=== PATIENT | male | born 1955 | race Two or more races ===

== ENCOUNTER 2019-03-16 16:44 | Emergency (ER) | payer SELFPAY ==
[~2019-03-16] VITALS: Ht 188 cm; Wt 107.0 kg
[2019-03-16 19:02] LABS: INR 2.3
[2019-03-16 19:35] LABS: BASOPHILS % 0.5 % (0.0-2.0); EOSINOPHILS % 0.3 % (0.0-5.0); HEMATOCRIT. 43.5 % (42.0-52.0); LYMPHOCYTES % 20.1 % (20.0-50.0); MEAN CORPUSCULAR HEMOGLOBIN 26.7 pg (28.0-32.0); MEAN CORPUSCULAR VOLUME 82.7 fL (80.0-94.0); MEAN PLATELET VOLUME 9.6 fl (7.4-10.4); NEUTROPHILS % 75.1 % (40.0-76.0); PLATELET 141 x1000/uL (130-400); RED BLOOD CELL COUNT 5.26 mill/uL (4.7-6.1); RED CELL DISTRIBUTION WIDTH 14.4 % (11.6-14.6)
[2019-03-16 19:42] LABS: CHLORIDE 110 mEq/L (98-107)
[2019-03-16 21:20] VITALS: BP 123/77
== END 2019-03-16 21:36 | disposition home or self-care (01) ==
LOC: ER 17:02
DX: R55 Syncope and collapse (principal); H40.9 Unspecified glaucoma; Z88.5 Allergy status to narcotic agent
CPT/HCPCS: 36415; 71045; 82962; 83880; 84484; 93005; 99284

== ENCOUNTER 2020-01-31 21:57 | Emergency (ER) | payer MEDICARE ==
[~2020-01-31] VITALS: Ht 190.5 cm; Wt 111.0 kg
[2020-01-31 21:59] VITALS: BP 150/120
== END 2020-01-31 22:52 | disposition left against medical advice (07) ==
LOC: ER 21:57
DX: T40.5X2 Poisoning by cocaine, intentional self-harm (principal)
CPT/HCPCS: 99283

== ENCOUNTER 2025-01-01 10:37 | Inpatient (IN) | payer MEDICARE, OTHER ==
[~2025-01-01] VITALS: Ht 188 cm; Wt 108.2 kg
[2025-01-01] MEDS: LACTATED RINGERS 500 ML IV SCH (11:00)
[2025-01-01] MEDS: ATROPINE SULFATE 1MG/10ML SYR IV ONE (11:00)
[2025-01-01 11:25] LABS: BASOPHILS % 0.4 % (0.0-2.0); HEMATOCRIT. 38.4 % (42.0-52.0); MEAN CORPUSCULAR HEMOGLOBIN 27.8 pg (28.0-32.0); MEAN CORPUSCULAR HGB CONC 31.3 g/dL (31.0-37.0); MEAN PLATELET VOLUME 9.5 fl (7.4-10.4); MONOCYTES % 12.3 % (2.0-8.0); NEUTROPHILS % 46.3 % (40.0-76.0); PLATELET 102 x1000/uL (130-400); RED BLOOD CELL COUNT 4.31 mill/uL (4.7-6.1); RED CELL DISTRIBUTION WIDTH 14.1 % (11.6-14.6); WHITE BLOOD COUNT 4.1 x1000/uL (4.5-11.0)
[2025-01-01 11:47] LABS: CHLORIDE 111 mEq/L (98-107); POTASSIUM 4.4 mEq/L (3.5-5.1); SODIUM 142 mEq/L (136-145)
[2025-01-01 11:48] LABS: CALCIUM 8.6 mg/dL (8.7-10.4); CARBON DIOXIDE 23 mEq/L (21-32)
[2025-01-01 11:53] LABS: CREATININE 0.9 mg/dL (0.6-1.3); GLUCOSE 97 mg/dL (70-105); UREA NITROGEN BLOOD 10 mg/dL (9-23)
[2025-01-01] MEDS ORDERED: ONDANSETRON HCL 4MG/2ML INJ IV PRN (12:00)
[2025-01-01] MEDS ORDERED: HYDROCODONE/ACETAMINOPHEN 5/325MG TABLET PO PRN (12:00)
[2025-01-01] MEDS ORDERED: HYDRALAZINE 20MG/ML VIAL IV PRN (12:00)
[2025-01-01 12:09] LABS: TROPONIN I HIGH SENSITIVITY < 4 ng/L (3.0-53)
[2025-01-01] MEDS ORDERED: NALOXONE HCL 0.4MG/ML VIAL IV PRN (12:15)
[2025-01-01 13:00] VITALS: BP 136/92; PULSE 95; RESP 17; TEMP 35.8; O2SAT 100
[2025-01-01] MEDS: ENOXAPARIN 40MG/0.4ML SYR SUBCUT SCH (13:00)
[2025-01-01 14:17] VITALS: BP 136/92; PULSE 95; RESP 20; TEMP 35.9
[2025-01-01 16:00] VITALS: BP 138/79; PULSE 91; RESP 20; TEMP 36.7; O2SAT 96
[2025-01-01 20:00] VITALS: BP 116/42; PULSE 62; RESP 20; TEMP 36.9; O2SAT 100
[2025-01-01 20:23] LABS: TROPONIN I HIGH SENSITIVITY < 4 ng/L (3.0-53)
[2025-01-01] MEDS ORDERED: VISCOUS LIDOCAINE 2% 15 ML UDC MM PRN (21:30)
[2025-01-01] MEDS: ACETAMINOPHEN 325MG TABLET PO PRN (22:10)
[2025-01-02] VITALS: BP 131/64; PULSE 57; RESP 18; TEMP 36.3; O2SAT 100
[2025-01-02 00:50] LABS: TROPONIN I HIGH SENSITIVITY < 4 ng/L (3.0-53)
[2025-01-02 04:00] VITALS: BP 113/57; PULSE 52; RESP 18; TEMP 36.5; O2SAT 97
[2025-01-02 06:40] LABS: BASOPHILS % 0.5 % (0.0-2.0); EOSINOPHILS % 1.5 % (0.0-5.0); HEMATOCRIT. 37.4 % (42.0-52.0); HEMOGLOBIN. 12.2 g/dL (14.0-18.0); LYMPHOCYTES % 41.1 % (20.0-50.0); MEAN CORPUSCULAR HEMOGLOBIN 27.8 pg (28.0-32.0); MEAN CORPUSCULAR HGB CONC 32.7 g/dL (31.0-37.0); MEAN CORPUSCULAR VOLUME 85.2 fL (80.0-94.0); MONOCYTES % 9.7 % (2.0-8.0); NEUTROPHILS % 47.2 % (40.0-76.0); PLATELET 135 x1000/uL (130-400); RED BLOOD CELL COUNT 4.39 mill/uL (4.7-6.1); RED CELL DISTRIBUTION WIDTH 13.5 % (11.6-14.6); WHITE BLOOD COUNT 4.5 x1000/uL (4.5-11.0)
[2025-01-02 06:41] LABS: CARBON DIOXIDE 26 mEq/L (21-32); CHLORIDE 111 mEq/L (98-107); POTASSIUM 4.1 mEq/L (3.5-5.1); SODIUM 143 mEq/L (136-145)
[2025-01-02 06:43] LABS: CALCIUM 8.5 mg/dL (8.7-10.4)
[2025-01-02 06:46] LABS: CREATININE 0.8 mg/dL (0.6-1.3)
[2025-01-02 06:47] LABS: GLUCOSE 95 mg/dL (70-105); UREA NITROGEN BLOOD 11 mg/dL (9-23)
[2025-01-02 08:00] VITALS: BP_SYST 138; BP_SYST 144; BP_SYST 148; BP_DIAS 78; BP_DIAS 81; BP_DIAS 82; PULSE 65; RESP 18; TEMP 36.2; O2SAT 100
[2025-01-02] MEDS: PANTOPRAZOLE SODIUM 40 MG/VIAL IV SCH (08:48)
[2025-01-02 12:00] VITALS: BP 138/80; PULSE 60; RESP 18; TEMP 36.7; O2SAT 100
[2025-01-02 15:51] VITALS: BP 148/70; PULSE 62; TEMP 97.8; O2SAT 100
[2025-01-02 15:54] VITALS: BP 148/70; PULSE 62; RESP 18; TEMP 36.6; O2SAT 100
== END 2025-01-02 16:15 | disposition home or self-care (01) | DRG 48 ==
LOC: ER 10:37 → 7WST 11:35 → EDBEDREQTM 11:45 → EDBEDREQ 11:45 → ENRESERV 11:59
PROVIDERS: ADMIT Internal Medicine; ATTEND Internal Medicine
DX: G90.89 Other disorders of autonomic nervous system (principal); I95.89 Other hypotension; G43.909 Migraine, unspecified, not intractable, without status migrainosus; G47.30 Sleep apnea, unspecified; R55 Syncope and collapse; R00.1 Bradycardia, unspecified; N40.0 Benign prostatic hyperplasia without lower urinary tract symptoms; Z87.891 Personal history of nicotine dependence; Z88.5 Allergy status to narcotic agent; Z91.011 Allergy to milk products
CPT/HCPCS: 36415; 71045; 80048; 84484; 85025; 93005; 93306; 93880; 93970; 97161; 99291; J0461; J2470

== ENCOUNTER 2025-01-21 11:02 | Emergency (ER) | payer MEDICARE, OTHER ==
[~2025-01-21] VITALS: Ht 188 cm; Wt 107.0 kg
[~2025-01-21 11:02] MED LIST: BALANCED SALT IRRIG SOLN 15ML ONE
[2025-01-21 11:06] VITALS: PULSE 66; RESP 18; O2SAT 99
[2025-01-21 11:13] VITALS: BP 143/77; TEMP 36.8; O2SAT 100
[2025-01-21] MEDS ORDERED: ACETAZOLAMIDE SODIUM 500MG/VIAL IV ONE (12:00)
[2025-01-21 12:19] LABS: BASOPHILS % 0.4 % (0.0-2.0); DIFFERENTIAL COMMENT 0; EOSINOPHILS % 1.6 % (0.0-5.0); HEMATOCRIT. 43.6 % (42.0-52.0); LYMPHOCYTES % 37.6 % (20.0-50.0); MEAN CORPUSCULAR HEMOGLOBIN 27.6 pg (28.0-32.0); MEAN CORPUSCULAR HGB CONC 32.2 g/dL (31.0-37.0); MEAN CORPUSCULAR VOLUME 85.6 fL (80.0-94.0); MEAN PLATELET VOLUME 9.3 fl (7.4-10.4); MONOCYTES % 9.5 % (2.0-8.0); NEUTROPHILS % 50.9 % (40.0-76.0); PLATELET 153 x1000/uL (130-400); RED CELL DISTRIBUTION WIDTH 14.4 % (11.6-14.6)
[2025-01-21 12:31] LABS: CHLORIDE 110 mEq/L (98-107); POTASSIUM 4.3 mEq/L (3.5-5.1); SODIUM 142 mEq/L (136-145)
[2025-01-21 12:32] LABS: CALCIUM 9.3 mg/dL (8.7-10.4); CARBON DIOXIDE 26 mEq/L (21-32)
[2025-01-21 12:33] LABS: PARTIAL THROMBOPLASTIN TIME 24.7 sec (23.4-31.0); PROTHROMBIN TIME 10.5 sec (9.6-11.0)
[2025-01-21 12:37] LABS: CREATININE 1.1 mg/dL (0.6-1.3); GLUCOSE 96 mg/dL (70-105); UREA NITROGEN BLOOD 10 mg/dL (9-23)
[2025-01-21] MEDS ORDERED: ONDANSETRON HCL 4MG/2ML INJ IV PRN (13:15)
[2025-01-21] MEDS ORDERED: HYDROMORPHONE HCL/PF 1MG/ML INJ IV PRN (13:15)
[2025-01-21] MEDS ORDERED: TRIAMCINOLONE ACETONIDE 40MG/ML 1ML VIAL ONE (14:07)
== END 2025-01-21 13:02 | disposition home or self-care (01) ==
LOC: ER 11:02 → EDBEDREQ 11:58 → ER 13:02 → ENRESERV 13:28
DX: H40.10X0 Unspecified open-angle glaucoma, stage unspecified (principal); E11.9 Type 2 diabetes mellitus without complications; Z79.899 Other long term (current) drug therapy
CPT/HCPCS: 66180; 80048; 85025; 85610; 85730; 86850; 86900; 86901; 36415; 93005; 99291; J3490; J3301; Z7610 ×9; J1120; C1783

== ENCOUNTER → 2025-05-30 | Day surgery (SDC) | payer MEDICARE, BC, MEDICAID ==
[~2025-05-30] VITALS: Ht 188 cm; Wt 108.9 kg
[~2025-05-30] MED LIST changes: +ACETYLCHOLINE CHLORIDE INTRAOCULAR SOLUTION 1:100 ELECTROLYTE DILUENT IO ONE; +BALANCED SALT IRRIG SOLN COMB1 500ML OP NR; +BUPIVACAINE HCL/PF 0.75% (7.5MG/ML) 10ML ONE; +CIPROFLOXACIN 0.3% OPHTH SOLN 2.5ML ONE; +CYCLOPENTOLATE HCL 1% OPHTH DROPS 2ML LEFTEYE ONE; +CYCLOPENTOLATE HCL 1% OPHTH DROPS 2ML ONE; +HYALURONATE SODIUM 10MG/ML 0.55ML SYRINGE IO ONE; +LACTATED RINGERS 1,000 ML IV SCH; +LIDOCAINE HCL 1% 10 MG/ML 10ML VIAL ONE; +LIDOCAINE HCL 2% 5ML SYRINGE IV ONE; +LIDOCAINE HCL/EPINEPHRINE 2%-EPI 1:200,000 20ML VIAL ONE; +NEO/POLYMYX B SULF/DEXAMETH OPHTH OINT 3.5GM ONE; +PHENYLEPHRINE HCL 10% OPHTH DROPS 5ML LEFTEYE ONE; +PHENYLEPHRINE HCL 10% OPHTH DROPS 5ML ONE; +PREDNISOLONE ACETATE 1% OPHTH DROPS 5ML ONE; +PROPOFOL 10MG/ML 100ML 100 ML IV ONE; +TETRACAINE 0.5% OPHTH DROPS 4ML ONE; +TROPICAMIDE 1% OPHTH DROPS 15ML LEFTEYE ONE; +TROPICAMIDE 1% OPHTH DROPS 15ML ONE
== END | disposition home or self-care (01) ==
LOC: OR 10:44
PROVIDERS: ATTEND Ophthalmology
DX: H25.89 Other age-related cataract (principal); H40.9 Unspecified glaucoma; Z79.899 Other long term (current) drug therapy; Z98.890 Other specified postprocedural states; Z87.891 Personal history of nicotine dependence
CPT/HCPCS: 66170; 66984; 93005; V2632; J3490 ×3; J2003 ×2; J2704; A4217